=== PATIENT | male | born 1960 | race Caucasian/White ===

== ENCOUNTER 2023-07-20 10:33 | Emergency (ER) | payer MEDICARE, BC ==
[~2023-07-20] VITALS: Ht 177.8 cm; Wt 78.9 kg
[2023-07-20] MEDS ORDERED: BENZ-13 PO (12:24)
[2023-07-20 12:50] VITALS: BP 109/80; TEMP 98.1; O2SAT 99
== END 2023-07-20 12:51 | disposition home or self-care (01) ==
LOC: ER 10:47
DX: R05.9 Cough, unspecified (principal); K21.9 Gastro-esophageal reflux disease without esophagitis; F17.200 Nicotine dependence, unspecified, uncomplicated; Z60.2 Problems related to living alone
CPT/HCPCS: 71045-TC